=== PATIENT | female | born 1965 | race Caucasian/White ===

== ENCOUNTER 2018-02-18 14:42 | Outpatient (CLI) | payer MEDICAID, SELFPAY | END 2018-02-18 14:43 | PROVIDERS: PCP Specialist/Technologist Athletic Trainer; Visit Provider Urology | DX: N31.9 Neuromuscular dysfunction of bladder, unspecified (principal); N39.0 Urinary tract infection, site not specified; R31.0 Gross hematuria | CPT/HCPCS: 87077; 87086; 87186 ==

== ENCOUNTER 2018-03-17 17:41 | Outpatient (REF) | payer MEDICAID, SELFPAY | END 2018-03-17 18:01 | LOC: LBN 17:41 | PROVIDERS: PCP Specialist/Technologist Athletic Trainer; Visit Provider Urology | DX: R31.0 Gross hematuria (principal) | CPT/HCPCS: 87086 ==

== ENCOUNTER 2018-05-17 01:30 | Outpatient (RCR) | payer MEDICAID, SELFPAY ==
[2018-04-26] MEDS: Normal Saline Flush 10 ML SYR IVP (07:22)
[2018-04-26 07:40] LABS: Abs Immature Grans 0.01 k/cumm (0.0-0.09); Absolute Basophil Count 0.04 k/cumm (0.0-0.2); Absolute Eosinophil Count 0.21 k/cumm (0.0-0.7); Absolute Lymphocyte Count 2.62 k/cumm (1.2-3.4); Absolute Monocyte Count 0.94 k/cumm (0.11-0.7); Absolute Neutrophil Count 4.72 k/cumm (1.2-6.7); Basophils % 0.5; Eosinophils % 2.5; HCT 36.7 % (36.0-46.0); HGB 11.9 g/dL (12.0-15.5); Immature Grans % 0.1; Lymphocytes % 30.7; Mean Corp. HGB Concentration 32.4 g/dL (32.0-36.0); Mean Corpuscular Volume 92.4 fL (80-95); Mean Platelet Volume 10.8 fL (8.0-11.0); Neutrophils % 55.2; Platelet Count 273 x1000/uL (130-400); RBC 3.97 m/cumm (4.00-5.20); RBC Distribution Width 14.5 % (11.7-14.6); White Blood Cell Count 8.54 k/cumm (4.4-10.8)
[2018-04-26 07:59] LABS: ALT 18 U/L (12-78); AST 17 U/L (15-37); Albumin 3.4 g/dL (3.4-5.0); Alkaline Phosphatase 51 U/L (46-116); Anion Gap 10.1 mmol/L (3-11); BUN 15 mg/dL (7-18); Bilirubin, Total 0.2 mg/dL (0.2-1.0); CO2 26.9 mmol/L (21.0-32.0); CREATININE 0.93 mg/dL (0.55-1.02); Calcium 9.4 mg/dL (8.5-10.1); Chloride 102 mmol/L (98-107); Glucose 114 mg/dL (70-100); Magnesium 1.6 mg/dL (1.8-2.4); Potassium 4.1 mmol/L (3.5-5.1); Sodium 139 mmol/L (136-145); Total Protein 7.5 g/dL (6.4-8.2)
[2018-05-17] MEDS: Normal Saline Flush 10 ML SYR IVP (08:40)
[2018-05-17 09:11] LABS: Abs Immature Grans 0.02 k/cumm (0.0-0.09); Absolute Basophil Count 0.04 k/cumm (0.0-0.2); Absolute Lymphocyte Count 2.17 k/cumm (1.2-3.4); Absolute Neutrophil Count 3.36 k/cumm (1.2-6.7); Basophils % 0.6; Eosinophils % 1.5; HCT 33.9 % (36.0-46.0); HGB 10.9 g/dL (12.0-15.5); Immature Grans % 0.3; Mean Corp. HGB Concentration 32.2 g/dL (32.0-36.0); Mean Corpuscular Hemoglobin 29.8 pg (27.0-33.0); Mean Corpuscular Volume 92.6 fL (80-95); Monocytes % 16.2; Neutrophils % 49.4; Platelet Count 420 x1000/uL (130-400); RBC 3.66 m/cumm (4.00-5.20); RBC Distribution Width 15.9 % (11.7-14.6); White Blood Cell Count 6.79 k/cumm (4.4-10.8)
[2018-05-17 09:27] LABS: ALT 15 U/L (12-78); AST 15 U/L (15-37); Albumin 3.3 g/dL (3.4-5.0); Alkaline Phosphatase 45 U/L (46-116); Anion Gap 10.4 mmol/L (3-11); BUN 9 mg/dL (7-18); Bilirubin, Total 0.2 mg/dL (0.2-1.0); CO2 26.6 mmol/L (21.0-32.0); CREATININE 1.08 mg/dL (0.55-1.02); Calcium 8.8 mg/dL (8.5-10.1); Chloride 103 mmol/L (98-107); Estimated GFR 53.07 (mL/min/1.73m2); Glucose 99 mg/dL (70-100); Magnesium 1.8 mg/dL (1.8-2.4); Sodium 140 mmol/L (136-145)
== END 2018-05-20 23:59 | disposition home or self-care (01) ==
LOC: INF 01:30
PROVIDERS: PCP Specialist/Technologist Athletic Trainer; Visit Provider Internal Medicine
DX: C79.10 Secondary malignant neoplasm of unspecified urinary organs (principal); Z45.2 Encounter for adjustment and management of vascular access device
CPT/HCPCS: 36591; 80053; 83735; 85025

== ENCOUNTER 2018-05-20 18:50 | Outpatient (REF) | payer MEDICAID, SELFPAY | END 2018-05-20 19:10 | LOC: NCHCN 18:50 | PROVIDERS: PCP Specialist/Technologist Athletic Trainer; Visit Provider Family Medicine | DX: N39.0 Urinary tract infection, site not specified (principal) | CPT/HCPCS: 87077; 87086; 87186 ==

== ENCOUNTER 2018-06-09 13:01 | Outpatient (REF) | payer MEDICAID, SELFPAY | END 2018-06-09 13:21 | LOC: NCHCN 13:01 | PROVIDERS: PCP Specialist/Technologist Athletic Trainer; Visit Provider Family Medicine | DX: N39.0 Urinary tract infection, site not specified (principal) | CPT/HCPCS: 87086 ==

== ENCOUNTER 2018-06-15 00:36 | Outpatient (RCR) | payer MEDICAID, SELFPAY ==
[2018-05-24] MEDS: Normal Saline Flush 10 ML SYR IVP (08:26)
[2018-05-24 08:33] LABS: Abs Immature Grans 0.03 k/cumm (0.0-0.09); Absolute Basophil Count 0.07 k/cumm (0.0-0.2); Absolute Eosinophil Count 0.03 k/cumm (0.0-0.7); Absolute Lymphocyte Count 2.17 k/cumm (1.2-3.4); Absolute Monocyte Count 0.31 k/cumm (0.11-0.7); Absolute Neutrophil Count 2.65 k/cumm (1.2-6.7); Basophils % 1.3; Eosinophils % 0.6; HCT 32.9 % (36.0-46.0); HGB 10.9 g/dL (12.0-15.5); Immature Grans % 0.6; Lymphocytes % 41.3; Mean Corp. HGB Concentration 33.1 g/dL (32.0-36.0); Mean Corpuscular Hemoglobin 29.6 pg (27.0-33.0); Mean Corpuscular Volume 89.4 fL (80-95); Mean Platelet Volume 9.6 fL (8.0-11.0); Monocytes % 5.9; Neutrophils % 50.3; Platelet Count 449 x1000/uL (130-400); RBC 3.68 m/cumm (4.00-5.20); RBC Distribution Width 15.4 % (11.7-14.6); White Blood Cell Count 5.26 k/cumm (4.4-10.8)
[2018-05-24 08:47] LABS: ALT 17 U/L (12-78); AST 18 U/L (15-37); Albumin 3.7 g/dL (3.4-5.0); Alkaline Phosphatase 42 U/L (46-116); Anion Gap 9.3 mmol/L (3-11); BUN 15 mg/dL (7-18); Bilirubin, Total 0.2 mg/dL (0.2-1.0); CO2 24.7 mmol/L (21.0-32.0); Calcium 9.1 mg/dL (8.5-10.1); Chloride 99 mmol/L (98-107); Estimated GFR 46.99 (mL/min/1.73m2); Glucose 106 mg/dL (70-100); Magnesium 1.6 mg/dL (1.8-2.4); Potassium 4.3 mmol/L (3.5-5.1); Sodium 133 mmol/L (136-145); Total Protein 7.7 g/dL (6.4-8.2)
[2018-06-07] MEDS: Normal Saline Flush 10 ML SYR IVP (08:25)
[2018-06-07 09:09] LABS: Abs Immature Grans 0.05 k/cumm (0.0-0.09); Absolute Basophil Count 0.01 k/cumm (0.0-0.2); Absolute Eosinophil Count 0.15 k/cumm (0.0-0.7); Absolute Lymphocyte Count 1.83 k/cumm (1.2-3.4); Absolute Monocyte Count 1.01 k/cumm (0.11-0.7); Absolute Neutrophil Count 2.81 k/cumm (1.2-6.7); Basophils % 0.2; Eosinophils % 2.6; HCT 31.7 % (36.0-46.0); HGB 10.3 g/dL (12.0-15.5); Immature Grans % 0.9; Lymphocytes % 31.2; Mean Corp. HGB Concentration 32.5 g/dL (32.0-36.0); Mean Corpuscular Hemoglobin 29.9 pg (27.0-33.0); Mean Corpuscular Volume 92.2 fL (80-95); Mean Platelet Volume 10.1 fL (8.0-11.0); Monocytes % 17.2; Neutrophils % 47.9; Platelet Count 232 x1000/uL (130-400); RBC 3.44 m/cumm (4.00-5.20); RBC Distribution Width 18.5 % (11.7-14.6); White Blood Cell Count 5.86 k/cumm (4.4-10.8)
[2018-06-07 09:31] LABS: ALT 21 U/L (12-78); AST 19 U/L (15-37); Albumin 3.5 g/dL (3.4-5.0); Alkaline Phosphatase 33 U/L (46-116); Anion Gap 8.3 mmol/L (3-11); BUN 10 mg/dL (7-18); Bilirubin, Total 0.1 mg/dL (0.2-1.0); CO2 27.7 mmol/L (21.0-32.0); CREATININE 0.85 mg/dL (0.55-1.02); Calcium 8.9 mg/dL (8.5-10.1); Chloride 104 mmol/L (98-107); Glucose 103 mg/dL (70-100); Potassium 4.1 mmol/L (3.5-5.1); Sodium 140 mmol/L (136-145)
[2018-06-15] MEDS: Normal Saline Flush 10 ML SYR IVP (08:20)
[2018-06-15 08:49] LABS: Abs Immature Grans 0.22 k/cumm (0.0-0.09); HCT 30.2 % (36.0-46.0); HGB 9.9 g/dL (12.0-15.5); Mean Corp. HGB Concentration 32.8 g/dL (32.0-36.0); Mean Corpuscular Hemoglobin 29.9 pg (27.0-33.0); Mean Corpuscular Volume 91.2 fL (80-95); Mean Platelet Volume 9.9 fL (8.0-11.0); Platelet Count 335 x1000/uL (130-400); RBC 3.31 m/cumm (4.00-5.20); RBC Distribution Width 18.2 % (11.7-14.6)
[2018-06-15 09:01] LABS: Absolute Lymphocyte Count 3.36 k/cumm (1.2-3.4); Absolute Monocyte Count 0.48 k/cumm (0.11-0.7)
[2018-06-15 09:03] LABS: Anisocytosis 2+; Diff Comment Manual Differential
[2018-06-15 09:18] LABS: ALT 26 U/L (12-78); AST 21 U/L (15-37); Albumin 3.2 g/dL (3.4-5.0); Alkaline Phosphatase 31 U/L (46-116); Anion Gap 5.9 mmol/L (3-11); BUN 18 mg/dL (7-18); Bilirubin, Total 0.2 mg/dL (0.2-1.0); CO2 30.1 mmol/L (21.0-32.0); CREATININE 0.96 mg/dL (0.55-1.02); Calcium 8.6 mg/dL (8.5-10.1); Chloride 101 mmol/L (98-107); Glucose 76 mg/dL (70-100); Magnesium 1.8 mg/dL (1.8-2.4); Potassium 3.7 mmol/L (3.5-5.1); Sodium 137 mmol/L (136-145); Total Protein 6.3 g/dL (6.4-8.2)
== END 2018-06-20 23:59 | disposition home or self-care (01) ==
LOC: INF 00:36
PROVIDERS: PCP Specialist/Technologist Athletic Trainer; Visit Provider Internal Medicine
DX: C79.10 Secondary malignant neoplasm of unspecified urinary organs (principal); Z45.2 Encounter for adjustment and management of vascular access device
CPT/HCPCS: 36591; 80053; 83735; 85025

== ENCOUNTER 2018-06-22 14:30 | Emergency (ER) | payer MEDICAID, SELFPAY ==
[2018-06-22 14:34] VITALS: BP 129/69; PULSE 95; RESP 18; TEMP 36.7; O2SAT 98
--- NOTE | 2018-06-22 14:49 | ED.GENADUL_ITS ---
Discharge Plan Disposition Patient Disposition: HOME Condition: Improving Discharge Details Chief Complaint: RashLesion Clinical Impression: Cellulitis of left leg Primary Care Provider: Teetee Orozco V ED Provider: Michael Isaac Home Meds and New Rx's Prescriptions: New cephalexin 500 mg tablet 500 mg PO TID Qty: 21 RF: 0 Continued ondansetron HCl 8 mg tablet 8 mg PO TID PRN (Reason: nausea and vomiting) Qty: 10 RF: 0 oxycodone 5 mg capsule 10 mg PO Q6H PRN Qty: 40 RF: 0 female catheter BL TID Qty: 90 RF: 12 atorvastatin [Lipitor] 10 mg Tablet 10 mg PO HS RF: 0 dexamethasone [Decadron] 4 mg Tablet 4 mg PO Q8H RF: 0 lactulose 10 gram/15 mL Solution RF: 0 magnesium oxide,aspartate,citr 400 mg Capsule 400 mg PO RF: 0 prochlorperazine maleate [Compazine] 10 mg Tablet 10 mg PO ONCE RF: 0 Medical Decision Making 52-year-old female currently undergoing chemotherapy for bladder cancer presents with left lower extremity erythematous rash over 2 days time. It does not appear to be vesicular and is not consistent with a shingles eruption, particularly this is begun to cross the midline. Did not appreciate evidence of fluctuant area. She denies any recent medication changes. She is afebrile and well-appearing. Screening laboratories & blood cultures obtained Diagnostics reveal a normal white blood cell count, normal lactate. Patient given a dose of ceftriaxone in the emergency department and will place her on Keflex. Discussed with her that I do not feel this is vesicular, but rather more consistent with cellulitis. Discussed with her home care as well as follow-up precautions. She will follow-up in oncology clinic for recheck. Lab Data Lab results reviewed: Yes I reviewed the patient's lab results. Laboratory Results - last 24 hr Laboratory Results - last 24 hr 06/22/18 06/22/18 14:50 14:50 WBC 4.73 RBC 3.43 L Hgb 10.3 L Hct 31.5 L MCV 91.8 MCH 30.0 MCHC 32.7 RDW 19.7 H Plt Count 95 L D MPV 9.9 Immature Gran % 1.1 Neutrophils % 66.4 Lymphocytes % 19.2 Monocytes % 11.6 Eosinophils % 1.5 Basophils % 0.2 Absolute Neutrophils 3.14 Absolute Lymphocytes 0.91 L Absolute Monocytes 0.55 Absolute Eosinophils 0.07 Absolute Basophils 0.01 Differential Comment Rbc morph reviewed RBC Morphology See below Hypochromasia 2+ Poikilocytosis 2+ Anisocytosis 1+ Macrocytosis 1+ Sodium 136 Potassium 4.1 Chloride 101 Carbon Dioxide 27.2 Anion Gap 7.8 BUN 15 Creatinine 1.24 H Estimated GFR/1.73 m2 45.25 Glucose 116 H Lactate 1.1 Calcium 8.5 Total Bilirubin 0.4 AST 18 ALT 20 Alkaline Phosphatase 28 L Total Protein 6.6 Albumin 3.4 06/22/18 14:50 Sodium 136 Potassium 4.1 Chloride 101 Carbon Dioxide 27.2 Anion Gap 7.8 BUN 15 Creatinine 1.24 H Estimated GFR/1.73 m2 45.25 Glucose 116 H Lactate 1.1 Calcium 8.5 Total Bilirubin 0.4 AST 18 ALT 20 Alkaline Phosphatase 28 L Total Protein 6.6 Albumin 3.4 HPI General Mode of arrival: ambulatory . Date/Time Provider Initiated Documentation: 06/22/18 14:36 . Limitations to Documentation: no limitations . Information obtained by: patient . History of Present Illness 52 year old F presents to the emergency department with the chief complaint of Ascending left leg rash, described as moderate, Quality is described as burning, and is localized to the left and lower extremity. Patient reports no radiation. Patient started experiencing this day(s) and it has been constant. No relieving factors improve symptom(s), No exacerbating factors reported . Patient notes rash and other (No recent medications.); denies fever/chills. Patient did receive the following treatments prior to arrival, none Related Data Home Medications Medication Instructions Recorded Confirmed ondansetron HCl 8 mg tablet 8 mg PO TID PRN #10 tab 03/01/18 06/22/18 oxycodone 5 mg capsule 10 mg PO Q6H PRN #40 tab-cap 03/17/18 06/22/18 atorvastatin [Lipitor] 10 mg PO HS 06/22/18 06/22/18 cephalexin 500 mg PO TID #21 tab 06/22/18 dexamethasone [Decadron] 4 mg PO Q8H 06/22/18 06/22/18 lactulose 06/22/18 magnesium oxide,aspartate,citr 400 mg PO 06/22/18 prochlorperazine maleate 10 mg PO ONCE 06/22/18 06/22/18 [Compazine] Previous Rx's Medication Instructions Recorded ondansetron HCl 8 mg tablet 8 mg PO TID PRN #10 tab 03/01/18 oxycodone 5 mg capsule 10 mg PO Q6H PRN #40 tab-cap 03/17/18 cephalexin 500 mg PO TID #21 tab 06/22/18 Allergies Allergy/AdvReac Type Severity Reaction Status Date / Time nitrofurantoin Allergy really Unverified 06/22/18 14:40 sick General Stated Complaint: RashLesion CHAD: 3 Review of Systems Review of Systems 8 systems reviewed and otherwise - PFSH Social History Smoking/Tobacco Use Status: Current every day Exam Narrative Exam Narrative: GEN: awake, alert, oriented 3. Pleasant, well groomed, interactive. HEAD: Normocephalic, atraumatic ENT: Mucous membranes moist, oropharynx unremarkable, External ear exam unremarkable EYES: PERRL, EOMI NECK: Full ROM, no CORTES, no menigismus CHEST/RESP: Nontender, clear to auscultation bilateral, no wheeze/rhonchi/rales CARDIOVASCULAR: RRR, no murmur, rub susan. 2+ Rad pulse bilateral ABDOMEN: Soft, nontender, no mass. +Bowel sounds EXT: Full ROM, no edema, left lower extremity has a blanching, erythematous coalescing rash without vesicles that is present from the popliteal fossa to the buttock and crosses the midline. Neuro: Grossly normal neurologic exam, conversant, interactive. Psych: Speech fluent, thoughts congruent, affect normal Course Vital Signs Temperature 36.7 C 06/22/18 14:34 Pulse 95 H 06/22/18 14:34 Respiratory Rate 18 06/22/18 14:34 Blood Pressure 129/69 06/22/18 14:34 Pulse Oximetry 98 06/22/18 14:34 Temperature 36.7 C 06/22/18 14:34 Temperature Source Temporal Artery Scan 06/22/18 14:34 Pulse 95 H 06/22/18 14:34 Respiratory Rate 18 06/22/18 14:34 Respiratory Effort Non-Labored 06/22/18 14:34 Blood Pressure 129/69 06/22/18 14:34 Blood Pressure Position Supine 06/22/18 14:34 Pulse Oximetry 98 06/22/18 14:34 Oxygen Delivery Method Room Air 06/22/18 14:34 Oxygen Flow Rate 0 06/22/18 14:34 Pain Level 10 06/22/18 14:34
[2018-06-22 15:03] LABS: Abs Immature Grans 0.05 k/cumm (0.0-0.09); Absolute Basophil Count 0.01 k/cumm (0.0-0.2); Absolute Eosinophil Count 0.07 k/cumm (0.0-0.7); Absolute Lymphocyte Count 0.91 k/cumm (1.2-3.4); Absolute Monocyte Count 0.55 k/cumm (0.11-0.7); Absolute Neutrophil Count 3.14 k/cumm (1.2-6.7); Basophils % 0.2; Eosinophils % 1.5; HCT 31.5 % (36.0-46.0); HGB 10.3 g/dL (12.0-15.5); Immature Grans % 1.1; Lymphocytes % 19.2; Mean Corp. HGB Concentration 32.7 g/dL (32.0-36.0); Mean Corpuscular Volume 91.8 fL (80-95); Mean Platelet Volume 9.9 fL (8.0-11.0); Monocytes % 11.6; Neutrophils % 66.4; RBC 3.43 m/cumm (4.00-5.20); RBC Distribution Width 19.7 % (11.7-14.6); White Blood Cell Count 4.73 k/cumm (4.4-10.8)
[2018-06-22 15:04] LABS: Lactate 1.1 mmol/L (0.6-1.4)
[2018-06-22] MEDS: diphenhydrAMINE 50 MG/ML VIAL 25 MG IVP (15:17)
[2018-06-22 15:31] LABS: ALT 20 U/L (12-78); AST 18 U/L (15-37); Albumin 3.4 g/dL (3.4-5.0); Alkaline Phosphatase 28 U/L (46-116); Anion Gap 7.8 mmol/L (3-11); BUN 15 mg/dL (7-18); Bilirubin, Total 0.4 mg/dL (0.2-1.0); CO2 27.2 mmol/L (21.0-32.0); CREATININE 1.24 mg/dL (0.55-1.02); Calcium 8.5 mg/dL (8.5-10.1); Chloride 101 mmol/L (98-107); Estimated GFR 45.25 (mL/min/1.73m2); Glucose 116 mg/dL (70-100); Potassium 4.1 mmol/L (3.5-5.1); Sodium 136 mmol/L (136-145); Total Protein 6.6 g/dL (6.4-8.2)
[2018-06-22 15:49] LABS: Anisocytosis 1+; Diff Comment RBC Morph Reviewed
[2018-06-22 15:50] LABS: Hypochromasia 2+; Macrocytosis 1+; Poikilocytes 2+
[2018-06-22 15:51] LABS: Platelet Count 95 x1000/uL (130-400)
--- NOTE | 2018-06-22 15:53 | NUR.NOTE ---
Nursing Note: Benadyrl improved ithcing per patient. IV abx infused. resting in bed in no acute distress. will continue to monitor.
[2018-06-22 16:17] VITALS: RESP 18; TEMP 36.7
== END 2018-06-22 16:20 | disposition home or self-care (01) ==
PROVIDERS: Emergency Provider Emergency Medicine; PCP Family Medicine
DX: L03.116 Cellulitis of left lower limb (principal)
CPT/HCPCS: 36415; 80053; 87040; 96365; 96375; 99284; 83605; 85025; J0696; J1200

== ENCOUNTER 2018-07-12 02:05 | Outpatient (RCR) | payer MEDICAID, SELFPAY ==
[2018-06-28] MEDS: Normal Saline Flush 10 ML SYR IVP (09:41)
[2018-06-28 09:50] LABS: Abs Immature Grans 0.11 k/cumm (0.0-0.09); Absolute Basophil Count 0.04 k/cumm (0.0-0.2); Absolute Eosinophil Count 0.18 k/cumm (0.0-0.7); Absolute Lymphocyte Count 1.77 k/cumm (1.2-3.4); Absolute Monocyte Count 0.81 k/cumm (0.11-0.7); Absolute Neutrophil Count 3.09 k/cumm (1.2-6.7); Basophils % 0.7; HCT 30.7 % (36.0-46.0); HGB 9.8 g/dL (12.0-15.5); Immature Grans % 1.8; Lymphocytes % 29.5; Mean Corp. HGB Concentration 31.9 g/dL (32.0-36.0); Mean Corpuscular Hemoglobin 30.1 pg (27.0-33.0); Mean Corpuscular Volume 94.2 fL (80-95); Mean Platelet Volume 9.7 fL (8.0-11.0); Monocytes % 13.5; Neutrophils % 51.5; Platelet Count 333 x1000/uL (130-400); RBC 3.26 m/cumm (4.00-5.20); RBC Distribution Width 21.3 % (11.7-14.6)
[2018-06-28 10:01] LABS: ALT 17 U/L (12-78); AST 16 U/L (15-37); Albumin 3.3 g/dL (3.4-5.0); Alkaline Phosphatase 38 U/L (46-116); Anion Gap 9.3 mmol/L (3-11); BUN 7 mg/dL (7-18); Bilirubin, Total 0.2 mg/dL (0.2-1.0); CO2 26.7 mmol/L (21.0-32.0); CREATININE 1.07 mg/dL (0.55-1.02); Calcium 9.2 mg/dL (8.5-10.1); Chloride 107 mmol/L (98-107); Estimated GFR 53.64 (mL/min/1.73m2); Glucose 104 mg/dL (70-100); Magnesium 1.8 mg/dL (1.8-2.4); Potassium 4.3 mmol/L (3.5-5.1); Sodium 143 mmol/L (136-145); Total Protein 6.8 g/dL (6.4-8.2)
[2018-07-05] MEDS: Normal Saline Flush 10 ML SYR IVP (08:10)
[2018-07-05 08:38] LABS: Abs Immature Grans 0.01 k/cumm (0.0-0.09); Absolute Basophil Count 0.05 k/cumm (0.0-0.2); Absolute Eosinophil Count 0.07 k/cumm (0.0-0.7); Absolute Lymphocyte Count 1.14 k/cumm (1.2-3.4); Absolute Monocyte Count 0.12 k/cumm (0.11-0.7); Absolute Neutrophil Count 0.89 k/cumm (1.2-6.7); Basophils % 2.2; Eosinophils % 3.1; HCT 28.3 % (36.0-46.0); HGB 9.1 g/dL (12.0-15.5); Immature Grans % 0.4; Mean Corp. HGB Concentration 32.2 g/dL (32.0-36.0); Mean Corpuscular Hemoglobin 29.9 pg (27.0-33.0); Mean Corpuscular Volume 93.1 fL (80-95); Mean Platelet Volume 9.7 fL (8.0-11.0); Monocytes % 5.3; Platelet Count 326 x1000/uL (130-400); RBC 3.04 m/cumm (4.00-5.20); RBC Distribution Width 20.3 % (11.7-14.6); White Blood Cell Count 2.28 k/cumm (4.4-10.8)
[2018-07-05 08:47] LABS: ALT 18 U/L (12-78); AST 26 U/L (15-37); Albumin 3.3 g/dL (3.4-5.0); Alkaline Phosphatase 35 U/L (46-116); Anion Gap 9.4 mmol/L (3-11); BUN 15 mg/dL (7-18); Bilirubin, Total 0.2 mg/dL (0.2-1.0); CO2 28.6 mmol/L (21.0-32.0); CREATININE 1.49 mg/dL (0.55-1.02); Calcium 8.9 mg/dL (8.5-10.1); Chloride 104 mmol/L (98-107); Estimated GFR 36.61 (mL/min/1.73m2); Glucose 102 mg/dL (70-100); Magnesium 1.5 mg/dL (1.8-2.4); Potassium 4.3 mmol/L (3.5-5.1); Sodium 142 mmol/L (136-145); Total Protein 6.7 g/dL (6.4-8.2)
[2018-07-05 09:09] LABS: Anisocytosis 2+; Diff Comment Diff Reviewed
[2018-07-05 09:10] LABS: Hypochromasia 1+; Poikilocytes 1+
[2018-07-12 08:52] LABS: Absolute Basophil Count 0.02 k/cumm (0.0-0.2); Absolute Eosinophil Count 0.11 k/cumm (0.0-0.7); Absolute Lymphocyte Count 1.29 k/cumm (1.2-3.4); Absolute Monocyte Count 0.58 k/cumm (0.11-0.7); Absolute Neutrophil Count 2.48 k/cumm (1.2-6.7); Basophils % 0.4; Eosinophils % 2.5; HCT 28.7 % (36.0-46.0); HGB 9.2 g/dL (12.0-15.5); Lymphocytes % 28.8; Mean Corp. HGB Concentration 32.1 g/dL (32.0-36.0); Mean Corpuscular Volume 93.5 fL (80-95); Mean Platelet Volume 10.1 fL (8.0-11.0); Monocytes % 12.9; Neutrophils % 55.4; RBC 3.07 m/cumm (4.00-5.20); RBC Distribution Width 21.4 % (11.7-14.6); White Blood Cell Count 4.48 k/cumm (4.4-10.8)
[2018-07-12 09:09] LABS: Diff Comment RBC Morph Reviewed; Platelet Count 112 x1000/uL (130-400)
[2018-07-12 09:10] LABS: ALT 17 U/L (12-78); AST 20 U/L (15-37); Albumin 3.4 g/dL (3.4-5.0); Alkaline Phosphatase 37 U/L (46-116); Anion Gap 8.3 mmol/L (3-11); Anisocytosis 2+; BUN 18 mg/dL (7-18); Bilirubin, Total 0.3 mg/dL (0.2-1.0); CO2 27.7 mmol/L (21.0-32.0); CREATININE 1.31 mg/dL (0.55-1.02); Calcium 9.4 mg/dL (8.5-10.1); Chloride 107 mmol/L (98-107); Estimated GFR 42.47 (mL/min/1.73m2); Glucose 95 mg/dL (70-100); Magnesium 1.6 mg/dL (1.8-2.4); Poikilocytes 1+; Polychromasia Present; Potassium 4.1 mmol/L (3.5-5.1); Sodium 143 mmol/L (136-145); Total Protein 6.7 g/dL (6.4-8.2)
[2018-07-12] MEDS: Heparin 500 UNITS/5 ML SYRINGE IV (11:15)
[2018-07-12] MEDS: Normal Saline Flush 10 ML SYR IVP (11:15)
== END 2018-07-21 23:59 | disposition home or self-care (01) ==
LOC: INF 02:05
PROVIDERS: PCP Family Medicine; Visit Provider Internal Medicine
DX: C79.10 Secondary malignant neoplasm of unspecified urinary organs (principal); Z45.2 Encounter for adjustment and management of vascular access device
CPT/HCPCS: 36591; 80053; 96523; 83735; 85025

== ENCOUNTER 2018-07-12 11:49 | Outpatient (CLI) | payer MEDICAID, SELFPAY ==
--- NOTE | 2018-07-12 11:00 | DI.CT_ITS ---
SYMPTOMS/DIAGNOSIS: NEW DYSPNEA ON EXERTION, R06.09, SHORTNESS OF BREATH, R06.02, METASTATIC UROTHELIAL CA, C79.10, CURRENTLY ON CHEMOTHERAPY CTA OF THE CHEST: CT angiography was performed with multi slice acquisition and multi planar and 3D reconstruction. CT scan of the chest was performed according to the pulmonary embolus protocol. There is no evidence of a pulmonary embolus. The thoracic aorta is of normal caliber. No aneurysmal dilatation or dissection is seen. The heart size is within normal limits. No significant pericardial effusion is seen. No evidence of right ventricular dysfunction is present. There is an indwelling central venous catheter in good position. No significant thoracic adenopathy is appreciated. No pleural effusion or pneumothorax is identified. Severe central lobular emphysematous changes are present in the lungs. Atelectatic changes are seen in the lung bases. No focal consolidating infiltrates are seen. The tracheobronchial tree is unremarkable. Degenerative changes are present in the spine. Upper abdominal images show calcified granuloma in the spleen but no acute abnormality. IMPRESSION: No evidence of a pulmonary embolus, thoracic aortic dissection or aneurysm.
[2018-07-12] MEDS: Omnipaque 350 MG/ML 50 ML BTL IJ (11:48)
== END 2018-07-12 12:09 ==
PROVIDERS: PCP Family Medicine; Visit Provider Internal Medicine
DX: R06.09 Other forms of dyspnea (principal); R06.02 Shortness of breath; C79.10 Secondary malignant neoplasm of unspecified urinary organs; Z92.21 Personal history of antineoplastic chemotherapy
CPT/HCPCS: 71275; Q9967

== ENCOUNTER 2018-07-14 12:45 | Outpatient (REF) | payer MEDICAID, SELFPAY | END 2018-07-14 13:05 | LOC: NCHCN 12:45 | PROVIDERS: PCP Family Medicine; Visit Provider Family Medicine | DX: N30.90 Cystitis, unspecified without hematuria (principal) | CPT/HCPCS: 87086 ==

== ENCOUNTER 2018-10-17 16:34 | Outpatient (REF) | payer MEDICAID, SELFPAY ==
[2018-10-17 17:14] LABS: Bilirubin Negative (Negative); Blood Large (Negative); Clarity Clear; Glucose Negative (Negative); Ketones Negative (Negative); Leukocyte Esterase Large (Negative); Nitrite Positive (Negative); Urobilinogen 0.2 EU/dL (Up TO 0.2); pH 6.5 (5-8)
[2018-10-17 17:18] LABS: Bacteria Few HPF (Negative); C & S Indicated? Yes; Casts Negative LPF (Negative); Crystals Negative HPF (Negative); Epithelial Cells Negative HPF (Negative); Mucus Negative (Negative); Other Cells Negative (Negative); RBC >50 (0-2); WBC >50 HPF (0-5)
== END 2018-10-17 16:54 ==
LOC: LBN 16:34
PROVIDERS: PCP Family Medicine; Visit Provider Urology
DX: N39.0 Urinary tract infection, site not specified (principal)
CPT/HCPCS: 87077; 81003; 81015; 87086; 87186

== ENCOUNTER 2018-10-18 15:26 | Outpatient (REF) | payer MEDICAID, SELFPAY | END 2018-10-18 15:46 | LOC: NCHCN 15:26 | PROVIDERS: PCP Family Medicine; Visit Provider Family Medicine | DX: N89.8 Other specified noninflammatory disorders of vagina (principal) | CPT/HCPCS: 87070; 87205 ==

== ENCOUNTER 2018-12-05 15:47 | Outpatient (CLI) | payer MEDICAID, SELFPAY | END 2018-12-05 16:07 | PROVIDERS: PCP Family Medicine; Visit Provider Family Medicine | DX: C67.9 Malignant neoplasm of bladder, unspecified (principal) | CPT/HCPCS: 87077; 87086; 87186 ==

== ENCOUNTER 2019-07-26 14:00 | Outpatient (CLI) | payer MEDICAID, SELFPAY | END 2019-07-26 14:20 | PROVIDERS: PCP Family Medicine; Visit Provider Urology | DX: R39.89 Other symptoms and signs involving the genitourinary system (principal); R82.998 Other abnormal findings in urine | CPT/HCPCS: 87086 ==

== ENCOUNTER 2019-08-08 12:43 | Outpatient (REF) | payer MEDICAID, SELFPAY | END 2019-08-08 13:03 | LOC: LBN 12:43 | PROVIDERS: PCP Family Medicine; Visit Provider Urology | DX: R39.89 Other symptoms and signs involving the genitourinary system (principal) | CPT/HCPCS: 87086 ==

== ENCOUNTER 2019-08-15 12:39 | Outpatient (RCR) | payer MEDICAID, SELFPAY ==
[2019-08-15 13:08] LABS: Estimated GFR 33.59 (mL/min/1.73m2)
[2019-08-15] MEDS: Heparin 500 UNITS/5 ML SYRINGE (14:37)
[2019-08-15] MEDS: Normal Saline Flush 10 ML SYR 30 ML IVP (14:40)
== END 2019-08-19 23:59 | disposition home or self-care (01) ==
LOC: INF 12:39
PROVIDERS: PCP Family Medicine; Visit Provider Radiology Radiation Oncology
DX: C67.2 Malignant neoplasm of lateral wall of bladder (principal); Z45.2 Encounter for adjustment and management of vascular access device
CPT/HCPCS: 36591; 82565

== ENCOUNTER 2019-09-18 13:00 | Outpatient (RCR) | payer MEDICAID, SELFPAY ==
[2019-08-22] MEDS: Normal Saline Flush 10 ML SYR IVP (13:51)
[2019-08-22 14:20] LABS: CREATININE 1.57 mg/dL (0.55-1.02); Estimated GFR 34.33 (mL/min/1.73m2)
[2019-08-22 14:53] LABS: Abs Immature Grans 0.02 k/cumm (0.0-0.09); Absolute Basophil Count 0.04 k/cumm (0.0-0.2); Absolute Eosinophil Count 0.05 k/cumm (0.0-0.7); Absolute Lymphocyte Count 2.08 k/cumm (1.2-3.4); Absolute Monocyte Count 0.56 k/cumm (0.11-0.7); Absolute Neutrophil Count 5.89 k/cumm (1.2-6.7); Basophils % 0.5; Eosinophils % 0.6; HCT 37.8 % (36.0-46.0); HGB 12.3 g/dL (12.0-15.5); Immature Grans % 0.2 %; Lymphocytes % 24.1; Mean Corp. HGB Concentration 32.5 g/dL (32.0-36.0); Mean Corpuscular Hemoglobin 30.8 pg (27.0-33.0); Mean Corpuscular Volume 94.5 fL (80-95); Mean Platelet Volume 11.9 fL (8.0-11.0); Monocytes % 6.5; Neutrophils % 68.1; Platelet Count 245 x1000/uL (130-400); RBC Distribution Width 13.1 % (11.7-14.6); White Blood Cell Count 8.64 k/cumm (4.4-10.8)
[2019-08-22 15:31] LABS: ALT 14 U/L (14-59); AST 16 U/L (15-37); Albumin 3.7 g/dL (3.4-5.0); Alkaline Phosphatase 49 U/L (46-116); Anion Gap 13.7 mmol/L (3-11); BUN 15 mg/dL (7-18); Bilirubin, Total 0.2 mg/dL (0.2-1.0); CO2 21.3 mmol/L (21.0-32.0); CREATININE 1.57 mg/dL (0.55-1.02); Chloride 106 mmol/L (98-107); Estimated GFR 34.33 (mL/min/1.73m2); Glucose 129 mg/dL (74-106); Magnesium 1.9 mg/dL (1.8-2.4); Potassium 4.1 mmol/L (3.5-5.1); Sodium 141 mmol/L (136-145); Total Protein 6.9 g/dL (6.4-8.2)
[2019-09-05] MEDS: Heparin 500 UNITS/5 ML SYRINGE IVP (12:15)
[2019-09-05] MEDS: Normal Saline Flush 10 ML SYR 30 ML IVP (12:15)
[2019-09-05 12:38] LABS: Abs Immature Grans 0.02 k/cumm (0.0-0.09); Absolute Basophil Count 0.01 k/cumm (0.0-0.2); Absolute Eosinophil Count 0.06 k/cumm (0.0-0.7); Absolute Lymphocyte Count 0.64 k/cumm (1.2-3.4); Absolute Monocyte Count 0.74 k/cumm (0.11-0.7); Absolute Neutrophil Count 3.22 k/cumm (1.2-6.7); Basophils % 0.2; Eosinophils % 1.3; Immature Grans % 0.4 %; Lymphocytes % 13.6; Mean Corp. HGB Concentration 33.3 g/dL (32.0-36.0); Mean Corpuscular Hemoglobin 31.3 pg (27.0-33.0); Mean Platelet Volume 10.1 fL (8.0-11.0); Monocytes % 15.8; Neutrophils % 68.7; Platelet Count 139 x1000/uL (130-400); RBC 3.51 m/cumm (4.00-5.20); RBC Distribution Width 12.5 % (11.7-14.6); White Blood Cell Count 4.69 k/cumm (4.4-10.8)
[2019-09-05 12:58] LABS: ALT 18 U/L (14-59); AST 15 U/L (15-37); Albumin 3.4 g/dL (3.4-5.0); Alkaline Phosphatase 51 U/L (46-116); Anion Gap 8.4 mmol/L (3-11); BUN 18 mg/dL (7-18); Bilirubin, Total 0.3 mg/dL (0.2-1.0); CO2 26.6 mmol/L (21.0-32.0); CREATININE 1.64 mg/dL (0.55-1.02); Calcium 9.2 mg/dL (8.5-10.1); Chloride 102 mmol/L (98-107); Estimated GFR 32.65 (mL/min/1.73m2); Glucose 119 mg/dL (74-106); Sodium 137 mmol/L (136-145); Total Protein 7.4 g/dL (6.4-8.2)
[2019-09-18 12:25] LABS: Abs Immature Grans 0.04 k/cumm (0.0-0.09); Absolute Basophil Count 0.01 k/cumm (0.0-0.2); Absolute Eosinophil Count 0.17 k/cumm (0.0-0.7); Absolute Lymphocyte Count 0.63 k/cumm (1.2-3.4); Absolute Monocyte Count 0.93 k/cumm (0.11-0.7); Absolute Neutrophil Count 6.99 k/cumm (1.2-6.7); Basophils % 0.1; Eosinophils % 1.9; HCT 33.3 % (36.0-46.0); HGB 11.3 g/dL (12.0-15.5); Immature Grans % 0.5 %; Lymphocytes % 7.2; Mean Corp. HGB Concentration 33.9 g/dL (32.0-36.0); Mean Corpuscular Hemoglobin 32.1 pg (27.0-33.0); Mean Corpuscular Volume 94.6 fL (80-95); Mean Platelet Volume 9.3 fL (8.0-11.0); Monocytes % 10.6; Neutrophils % 79.7; Platelet Count 335 x1000/uL (130-400); RBC 3.52 m/cumm (4.00-5.20); White Blood Cell Count 8.77 k/cumm (4.4-10.8)
[2019-09-18 12:40] LABS: ALT 14 U/L (14-59); AST 12 U/L (15-37); Albumin 3.2 g/dL (3.4-5.0); Alkaline Phosphatase 45 U/L (46-116); Anion Gap 8.5 mmol/L (3-11); BUN 24 mg/dL (7-18); Bilirubin, Total 0.3 mg/dL (0.2-1.0); CO2 24.5 mmol/L (21.0-32.0); CREATININE 2.01 mg/dL (0.55-1.02); Chloride 103 mmol/L (98-107); Estimated GFR 25.82 (mL/min/1.73m2); Glucose 94 mg/dL (74-106); Magnesium 1.8 mg/dL (1.8-2.4); Potassium 4.2 mmol/L (3.5-5.1); Sodium 136 mmol/L (136-145); Total Protein 7.1 g/dL (6.4-8.2)
[2019-09-18] MEDS: Normal Saline Flush 10 ML SYR IVP (12:48)
[2019-09-18] MEDS: Heparin 500 UNITS/5 ML SYRINGE IV (12:48)
== END 2019-09-19 23:59 | disposition other institution (70) ==
LOC: INF 13:00
PROVIDERS: Radiology Radiation Oncology; PCP Family Medicine; Visit Provider Internal Medicine
DX: Z45.2 Encounter for adjustment and management of vascular access device; C67.2 Malignant neoplasm of lateral wall of bladder
CPT/HCPCS: 36591; 80053; 82565; 83735; 85025

== ENCOUNTER 2019-09-26 13:56 | Outpatient (RCR) | payer MEDICAID, SELFPAY ==
[2019-09-26] MEDS: Heparin 500 UNITS/5 ML SYRINGE (14:08)
[2019-09-26] MEDS: Normal Saline Flush 10 ML SYR IVP (14:09)
[2019-09-26 14:25] LABS: Abs Immature Grans 0.05 k/cumm (0.0-0.09); HGB 13.5 g/dL (12.0-15.5); Mean Corp. HGB Concentration 34.6 g/dL (32.0-36.0); Mean Corpuscular Hemoglobin 31.8 pg (27.0-33.0); Mean Corpuscular Volume 91.8 fL (80-95); Platelet Count 271 x1000/uL (130-400); RBC 4.25 m/cumm (4.00-5.20); RBC Distribution Width 14.6 % (11.7-14.6)
[2019-09-26 14:39] LABS: ALT 12 U/L (14-59); AST 11 U/L (15-37); Albumin 3.2 g/dL (3.4-5.0); Alkaline Phosphatase 53 U/L (46-116); Anion Gap 11.6 mmol/L (3-11); BUN 25 mg/dL (7-18); Bilirubin, Total 0.3 mg/dL (0.2-1.0); CO2 22.4 mmol/L (21.0-32.0); CREATININE 1.91 mg/dL (0.55-1.02); Calcium 9.8 mg/dL (8.5-10.1); Chloride 99 mmol/L (98-107); Estimated GFR 27.38 (mL/min/1.73m2); Glucose 107 mg/dL (74-106); Magnesium 1.8 mg/dL (1.8-2.4); Potassium 4.3 mmol/L (3.5-5.1); Sodium 133 mmol/L (136-145); Total Protein 7.9 g/dL (6.4-8.2)
[2019-09-26 14:56] LABS: Absolute Eosinophil Count 0.09 k/cumm (0.0-0.7); Absolute Lymphocyte Count 0.66 k/cumm (1.2-3.4); Absolute Monocyte Count 2.07 k/cumm (0.11-0.7); Absolute Neutrophil Count 6.58 k/cumm (1.2-6.7); Diff Comment Manual Differential; RBC Morphology Normal
== END 2019-10-19 23:59 | disposition home or self-care (01) ==
LOC: INF 13:56
PROVIDERS: PCP Family Medicine; Visit Provider Internal Medicine
DX: C79.10 Secondary malignant neoplasm of unspecified urinary organs (principal); Z45.2 Encounter for adjustment and management of vascular access device
CPT/HCPCS: 36591; 80053; 83735; 85025

== ENCOUNTER 2019-10-19 17:32 | Outpatient (REF) | payer MEDICAID, SELFPAY | END 2019-10-19 17:52 | LOC: NCHCN 17:32 | PROVIDERS: PCP Family Medicine; Visit Provider Family Medicine | DX: N39.0 Urinary tract infection, site not specified (principal); Z93.6 Other artificial openings of urinary tract status | CPT/HCPCS: 87077; 87086; 87186 ==

== ENCOUNTER 2019-11-29 01:21 | Outpatient (CLI) | payer MEDICAID, SELFPAY ==
[2019-11-29 13:54] LABS: HCT 31.7 % (36.0-46.0); HGB 10.5 g/dL (12.0-15.5); Mean Corp. HGB Concentration 33.1 g/dL (32.0-36.0); Mean Corpuscular Hemoglobin 31.3 pg (27.0-33.0); Mean Corpuscular Volume 94.3 fL (80-95); Mean Platelet Volume 10.4 fL (8.0-11.0); Platelet Count 318 x1000/uL (130-400); RBC 3.36 m/cumm (4.00-5.20); White Blood Cell Count 6.77 k/cumm (4.4-10.8)
[2019-11-29 14:21] LABS: ALT 13 U/L (14-59); AST 15 U/L (15-37); Albumin 2.7 g/dL (3.4-5.0); Alkaline Phosphatase 50 U/L (46-116); Anion Gap 8.1 mmol/L (3-11); BUN 15 mg/dL (7-18); Bilirubin, Total 0.2 mg/dL (0.2-1.0); CO2 25.9 mmol/L (21.0-32.0); CREATININE 1.06 mg/dL (0.55-1.02); Calcium 8.3 mg/dL (8.5-10.1); Chloride 103 mmol/L (98-107); Estimated GFR 54.02 (mL/min/1.73m2); Glucose 74 mg/dL (74-106); Magnesium 1.7 mg/dL (1.8-2.4); Potassium 4.7 mmol/L (3.5-5.1); Sodium 137 mmol/L (136-145); Total Protein 5.9 g/dL (6.4-8.2)
[2019-11-29 14:34] LABS: C-Reactive Protein 0.15 mg/dL (0.0-0.3)
[2019-11-29 15:01] LABS: ESR 50 mm/hr (0-30)
[2019-11-30 17:23] LABS: TSH (W/Ref FT4) 1.33 uIU/mL (0.36-3.74)
== END 2019-11-29 01:41 ==
PROVIDERS: PCP Family Medicine; Visit Provider Family Medicine
DX: C67.9 Malignant neoplasm of bladder, unspecified (principal)
CPT/HCPCS: 80053; 85027; 85652; 83735; 84443; 86140

== ENCOUNTER 2019-12-19 08:24 | Outpatient (RCR) | payer MEDICAID, SELFPAY ==
[2019-12-19] MEDS: Normal Saline Flush 10 ML SYR IVP (08:25)
[2019-12-19] MEDS: Heparin 500 UNITS/5 ML SYRINGE (08:25)
[2019-12-19 08:42] LABS: Abs Immature Grans 0.02 k/cumm (0.0-0.09); Absolute Basophil Count 0.03 k/cumm (0.0-0.2); Absolute Lymphocyte Count 1.23 k/cumm (1.2-3.4); Absolute Monocyte Count 0.83 k/cumm (0.11-0.7); Absolute Neutrophil Count 4.72 k/cumm (1.2-6.7); Basophils % 0.4; Eosinophils % 1.4; HCT 32.1 % (36.0-46.0); HGB 10.5 g/dL (12.0-15.5); Immature Grans % 0.3 %; Lymphocytes % 17.7; Mean Corp. HGB Concentration 32.7 g/dL (32.0-36.0); Mean Corpuscular Hemoglobin 31.7 pg (27.0-33.0); Mean Platelet Volume 9.5 fL (8.0-11.0); Neutrophils % 68.2; Platelet Count 335 x1000/uL (130-400); RBC 3.31 m/cumm (4.00-5.20); RBC Distribution Width 15.6 % (11.7-14.6); White Blood Cell Count 6.93 k/cumm (4.4-10.8)
[2019-12-19 09:00] LABS: ALT 8 U/L (14-59); AST 11 U/L (15-37); Albumin 2.3 g/dL (3.4-5.0); Alkaline Phosphatase 47 U/L (46-116); Anion Gap 6.1 mmol/L (3-11); BUN 13 mg/dL (7-18); Bilirubin, Total 0.2 mg/dL (0.2-1.0); CO2 24.9 mmol/L (21.0-32.0); CREATININE 0.94 mg/dL (0.55-1.02); Calcium 8.2 mg/dL (8.5-10.1); Chloride 107 mmol/L (98-107); Glucose 88 mg/dL (74-106); Magnesium 1.6 mg/dL (1.8-2.4); Potassium 3.6 mmol/L (3.5-5.1); Sodium 138 mmol/L (136-145); Total Protein 5.9 g/dL (6.4-8.2)
== END 2019-12-19 23:59 | disposition home or self-care (01) ==
LOC: INF 08:24
PROVIDERS: PCP Family Medicine; Visit Provider Internal Medicine
DX: C79.10 Secondary malignant neoplasm of unspecified urinary organs (principal); Z45.2 Encounter for adjustment and management of vascular access device
CPT/HCPCS: 36591; 80053; 83735; 85025

== ENCOUNTER 2020-01-09 13:51 | Emergency (ER) | payer MEDICAID, SELFPAY ==
[2020-01-09] VITALS (16 sets, daily range): BP systolic 96–122; BP diastolic 67–80; PULSE 88–117; RESP 16; TEMP 36.8; O2SAT 94–97
--- NOTE | 2020-01-09 14:15 | DI.CT_ITS ---
EXAM: CT ABDOMEN PELVIS W CLINICAL HISTORY: LLQ pain, obstipation, hx bladder ca TECHNIQUE: Imaging Protocol: Axial computed tomography images with coronal and sagittal reformatted images were created and reviewed CONTRAST MATERIAL: Intravenous: Omnipaque 350 Contrast volume:70 mL Oral: No FINDINGS: ABDOMEN: Lung Bases: Centrilobular emphysematous changes are present. No acute infiltrates are seen in the reagan g bases. Liver: Normal density. No measurable mass. Portal, Superior Mesenteric, and Splenic Veins: Unremarkable. Gallbladder and Biliary Tract: No cholelithiasis. Intra and extrahepatic biliary ductal dilatation is present. The common duct measures up to 9 mm in diameter. Pancreas: Normal density, no abnormal calcifications or inflammatory process. Spleen: Calcifications are consistent with prior granulomatous disease. Adrenals: No masses seen. Kidneys: Normal size, contour and axis. No nephrolithiasis. No masses seen. There is mild to moderate dilatation of the right renal collecting system without obvious cause. Abdominal Aorta: Abdominal portion non-dilated. Atherosclerosis. Bowel: Diffusely dilated loops of small bowel are seen measuring up to 3.5 cm in diameter. Distally s mall bowel loops are of normal caliber. There does appear to be mucosal edema and hyperenhancement in loops of the distal small bowel and cecum/ascending colon. There is a large amount of stool seen in the colon. No evidence of acute appendicitis. Peritoneal Cavity: Small amount of abdominal pelvic ascites. Lymph Nodes: Within normal limits. Bones: Degenerative changes seen in the spine. Soft Tissues: Unremarkable. PELVIS: Bladder: The patient appears to be status post cystectomy with right lower quadrant urinary diversion . Reproductive Organs: Unremarkable as visualized. Lymph Nodes: Within normal limits. Bones: Degenerative changes. IMPRESSION: 1. Intra and extrahepatic biliary ductal dilatation of unclear etiology. 2. Findings suspicious for a partial small bowel obstruction with a transition in the right lower kerline drant. 3. Hyperenhancement and submucosal edema in loops of bowel in the right lower quadrant including the distal small bowel and the cecum and ascending colon suspicious for an inflammatory process. No evide nce of abscess or bowel obstruction. 4. Status post cystectomy with right lower quadrant urinary diversion and [id number] right hydr onephrosis. RADIATION DOSE DELIVERED: Total DLP DATA REPOSITORY: All CT scans at this facility are submitted to the National Radiology Data Registry (NRDR) Dose Index Registry (DIR) with the [employer] ([employer]). RADIATION OPTIMIZATION: All CT scans at this facility use at least one of these dose optimization te chniques: automated exposure control; mA and/or kV adjustment per patient size (includes targeted exa ms where dose is matched to clinical indication); or iterative reconstruction.
--- NOTE | 2020-01-09 14:18 | W.ED.GENAD ---
Discharge Plan Disposition Patient Disposition: AGAINST MEDICAL ADVICE Condition: Stable Discharge Details Chief Complaint: Abd Prob Clinical Impression: Ileus, Bowel obstruction Primary Care Provider: Teetee Orozco V ED Provider: Michael Isaac Home Meds and New Rx's Prescriptions: Continued ondansetron HCl 8 mg tablet 8 mg PO TID PRN (Reason: nausea and vomiting) Qty: 10 RF: 0 female catheter BL TID Qty: 90 RF: 12 atorvastatin [Lipitor] 10 mg Tablet 10 mg PO HS RF: 0 prochlorperazine maleate [Compazine] 10 mg Tablet 10 mg PO ONCE RF: 0 venlafaxine 75 mg capsule,extended release 24hr 75 mg PO DAILY RF: 0 docusate sodium [DOK] 100 mg capsule 100 mg PO BID PRNRF: 0 pramipexole 0.25 mg tablet 0.25 mg PO .QHS RF: 0 omeprazole 20 mg capsule,delayed release(DR/EC) 20 mg PO DAILY RF: 0 hydroxyzine HCl 25 mg tablet 25 mg PO TID RF: 0 gabapentin 100 mg capsule 100 mg PO .QHS RF: 0 albuterol sulfate [ProAir HFA] 90 mcg/actuation HFA aerosol inhaler 2 puff INHALATION .4-6 HRS PRNRF: 0 fentanyl 12 mcg/hr patch 72 hour 25 transdermal .Q72 HRS RF: 0 budesonide-formoterol [Symbicort] 80-4.5 mcg/actuation HFA aerosol inhaler 1 puff INHALATION BID RF: 0 oxycodone 10 mg tablet 10 mg PO .1-2 QID PRNRF: 0 cholecalciferol (vitamin D3) [Vitamin D3] 50 mcg (2,000 unit) Capsule 2,000 unit PO DAILY RF: 0 dronabinol 5 mg capsule 5 mg PO DAILY RF: 0 Discharge Instructions Additional Instructions: You have requested discharge from the emergency department. You will be leaving AGAINST MEDICAL ADVICE. You were offered admission to the hospital on the surgery service for bowel obstruction/ileus. Return at any time for reconsideration of admission. You have stated that you wish to drive yourself with family to [facility]. Your work-up today included blood work and a CT scan of the abdomen which revealed ileus versus partial small bowel obstruction. Discharge Data Discharge Date/Time-TO BE ENTERED AT DEPARTURE: 01/09/20 17:45 Medical Decision Making 54-year-old female presents from home with days of constipation, abdominal bloating and distention. States 2 days ago she tried a laxative, felt nauseated and had some feculent emesis. She has not had a fever. She continues to make urine through her urostomy tube. She has a history of bladder cancer status post radiation therapy. Patient arrives with a pulse in proxy 100, afebrile, pleasant and interactive. Her abdomen is distended and somewhat tender left lower quadrant. Differential gnosis includes bowel obstruction, ileus, constipation. Patient IV access established, given parenteral fluids, referred for screening laboratories and CT imaging. Labs are reassuring. CT images note diffusely dilated loops of bowel throughout the abdomen. There are multiple loops of small bowel which demonstrate mucosal hyperenhancement and submucosal edema, also seen at the cecum and ascending colon. Given the possibility of underlying inflammatory changes, ileus, partial small bowel obstruction, the case was discussed with Dr. Bruner from general surgery. We recommended placement of an NG tube and admission to the hospital. Patient stated that she wished to be discharged and would present herself to [facility]. Demonstrates decision-making capacity and I feel that she is able to make this decision. She understands the risk benefits of discharge at this time. Lab Data Lab results reviewed: Yes I reviewed the patient's lab results. Labs: Laboratory Results - last 24 hr 01/09/20 01/09/20 14:25 14:25 WBC 6.33 RBC 3.84 L Hgb 12.0 Hct 36.8 MCV 95.8 H MCH 31.3 MCHC 32.6 RDW 14.8 H Plt Count 303 MPV 9.7 Immature Gran % 0.3 Neutrophils % 65.6 Lymphocytes % 15.0 Monocytes % 17.5 Eosinophils % 1.3 Basophils % 0.3 Absolute Neutrophils 4.15 Absolute Lymphocytes 0.95 L Absolute Monocytes 1.11 H Absolute Eosinophils 0.08 Absolute Basophils 0.02 Sodium 136 Potassium 3.3 L Chloride 101 Carbon Dioxide 27.1 Anion Gap 7.9 BUN 15 Creatinine 0.99 Estimated GFR/1.73 m2 58.24 Glucose 102 Calcium 8.5 Magnesium 1.6 L Total Bilirubin 0.2 AST 11 L ALT 9 L Alkaline Phosphatase 40 L Total Protein 6.3 L Albumin 2.6 L HPI General Mode of arrival: ambulatory. Date/Time Provider Initiated Documentation: 01/09/20 14:02. Limitations to Documentation: no limitations. Information obtained by: patient. History of Present Illness 54 year old F presents to the emergency department with the chief complaint of Lower abdominal pain, constipation, described as moderate and similar to prior episodes, Quality is described as dull, and is localized to the abdomen. Patient reports no radiation. Patient started experiencing this day(s) and it has been intermittent. No relieving factors improve symptom(s), No exacerbating factors reported . Patient notes other (Vomited 2 days ago x1); denies fever/chills. Related Data Home Medications Medication Instructions Recorded Confirmed ondansetron HCl 8 mg tablet 8 mg PO TID PRN #10 tab 03/01/18 01/09/20 atorvastatin [Lipitor] 10 mg PO HS 06/22/18 01/09/20 prochlorperazine maleate 10 mg PO ONCE 06/22/18 01/09/20 [Compazine] albuterol sulfate [ProAir HFA] 2 puff INHALATION .4-6 HRS PRN 01/09/20 01/09/20 budesonide-formoterol [Symbicort] 1 puff INHALATION BID 01/09/20 01/09/20 cholecalciferol (vitamin D3) 2,000 unit PO DAILY 01/09/20 01/09/20 [Vitamin D3] docusate sodium [DOK] 100 mg PO BID PRN 01/09/20 01/09/20 dronabinol 5 mg PO DAILY 01/09/20 01/09/20 fentanyl 25 TRANSDERMAL .Q72 HRS 01/09/20 gabapentin 100 mg PO .QHS 01/09/20 01/09/20 hydroxyzine HCl 25 mg PO TID 01/09/20 01/09/20 omeprazole 20 mg PO DAILY 01/09/20 01/09/20 oxycodone 10 mg PO .1-2 QID PRN 01/09/20 01/09/20 pramipexole 0.25 mg PO .QHS 01/09/20 01/09/20 venlafaxine 75 mg PO DAILY 01/09/20 01/09/20 Previous Rx's Medication Instructions Recorded ondansetron HCl 8 mg tablet 8 mg PO TID PRN #10 tab 03/01/18 Allergies Allergy/AdvReac Type Severity Reaction Status Date / Time nitrofurantoin Allergy really Unverified 01/09/20 14:02 sick General Stated Complaint: Abd Prob CHAD: 3 Review of Systems Narrative: No bowel movement for at least 1 week. No fever. Underwent radiation therapy for bladder cancer. 6 systems reviewed and otherwise negative [facility] Medical History (Updated 01/09/20 @ 17:50 by Anahy Bruner MD) Chronic pain after cancer treatment (Acute) Depression (Chronic) GERD (gastroesophageal reflux disease) (Chronic) Hx of bladder cancer (Inactive) Surgical History (Updated 01/09/20 @ 17:47 by Anahy Bruner MD) H/O total cystectomy (Inactive) History of urostomy (Acute) Social History Smoking/Tobacco Use Status: Current every day Tobacco Type: cigarettes Smoking packs per day: 0.5 Smoking cigarettes per day: 10.0 Alcohol Intake: never Drug use: Current Sobriety Do you feel safe in your relationship?: Yes Exam Narrative Exam Narrative: GEN: awake, alert, oriented 3. Pleasant, well groomed, interactive. HEAD: Normocephalic, atraumatic ENT: Mucous membranes moist, oropharynx unremarkable, External ear exam unremarkable EYES: PERRL, EOMI NECK: Full ROM, no CORTES, no menigismus CHEST/RESP: Right chest wall palpable indwelling port. Nontender, clear to auscultation bilateral, no wheeze/rhonchi/rales CARDIOVASCULAR: Borderline regular tachycardia to proxy 100 bpm, no murmur, rub susan. 2+ Rad pulse bilateral ABDOMEN: Soft, slightly distended, tender left lower quadrant, right anterior abdominal wall urostomy, no mass. +Bowel sounds EXT: Full ROM, no edema, no rash Neuro: Grossly normal neurologic exam, conversant, interactive. Psych: Speech fluent, thoughts congruent, affect normal Course Vital Signs Vital signs: Vital Signs Temperature 36.8 C 01/09/20 13:57 Pulse 117 H 01/09/20 13:57 Respiratory Rate 16 01/09/20 13:57 Blood Pressure 118/79 01/09/20 13:57 Pulse Oximetry 96 01/09/20 13:57 Temperature 36.8 C 01/09/20 13:57 Temperature Source Skin 01/09/20 13:57 Pulse 117 H 01/09/20 13:57 Respiratory Rate 16 01/09/20 13:57 Respiratory Effort Non-Labored 01/09/20 13:57 Blood Pressure 118/79 01/09/20 13:57 Blood Pressure Position Sitting 01/09/20 13:57 Pulse Oximetry 96 01/09/20 13:57 Oxygen Delivery Method Room Air 01/09/20 13:57 Oxygen Flow Rate 0 01/09/20 13:57 Pain Level 10 01/09/20 13:57
[2020-01-09 14:42] LABS: Abs Immature Grans 0.02 k/cumm (0.0-0.09); Absolute Basophil Count 0.02 k/cumm (0.0-0.2); Absolute Eosinophil Count 0.08 k/cumm (0.0-0.7); Absolute Lymphocyte Count 0.95 k/cumm (1.2-3.4); Absolute Monocyte Count 1.11 k/cumm (0.11-0.7); Absolute Neutrophil Count 4.15 k/cumm (1.2-6.7); Basophils % 0.3; Eosinophils % 1.3; HCT 36.8 % (36.0-46.0); Immature Grans % 0.3 %; Mean Corp. HGB Concentration 32.6 g/dL (32.0-36.0); Mean Corpuscular Hemoglobin 31.3 pg (27.0-33.0); Mean Corpuscular Volume 95.8 fL (80-95); Mean Platelet Volume 9.7 fL (8.0-11.0); Monocytes % 17.5; Neutrophils % 65.6; Platelet Count 303 x1000/uL (130-400); RBC 3.84 m/cumm (4.00-5.20); RBC Distribution Width 14.8 % (11.7-14.6); White Blood Cell Count 6.33 k/cumm (4.4-10.8)
[2020-01-09 14:57] LABS: ALT 9 U/L (14-59); AST 11 U/L (15-37); Albumin 2.6 g/dL (3.4-5.0); Alkaline Phosphatase 40 U/L (46-116); Anion Gap 7.9 mmol/L (3-11); BUN 15 mg/dL (7-18); Bilirubin, Total 0.2 mg/dL (0.2-1.0); CO2 27.1 mmol/L (21.0-32.0); CREATININE 0.99 mg/dL (0.55-1.02); Calcium 8.5 mg/dL (8.5-10.1); Chloride 101 mmol/L (98-107); Estimated GFR 58.24 (mL/min/1.73m2); Glucose 102 mg/dL (74-106); Magnesium 1.6 mg/dL (1.8-2.4); Potassium 3.3 mmol/L (3.5-5.1); Sodium 136 mmol/L (136-145); Total Protein 6.3 g/dL (6.4-8.2)
[2020-01-09] MEDS: Omnipaque 350 MG/ML 100 ML BTL IV (16:09)
[2020-01-09] MEDS: Normal Saline - Diluent 50 ML VIAL IV (16:22)
[2020-01-09] MEDS: oxyCODONE 10 MG TAB PO (17:02)
--- NOTE | 2020-01-09 17:22 | DI.VRAD_ITS ---
Addendum created by Angel Castillo MD on 01/09/2020 5:22:18 PM EDT THIS REPORT CONTAINS FINDINGS THAT MAY BE CRITICAL TO PATIENT CARE. The findings were verbally communicated via telephone conference with MICHAEL DOHERTY at 5:22 PM EDT on 01/09/2020. The findings were acknowledged and understood. Initial report created on 01/09/2020 5:22:03 PM EDT PROCEDURE INFORMATION: Exam: CT Abdomen And Pelvis With Contrast Exam date and time: 01/09/2020 2:19 PM Age: 54 years old Clinical indication: Other: Llq pain, obstipation, HX bladder CA; Prior surgery; Surgery date: 6+ months TECHNIQUE: Imaging protocol: Computed tomography of the abdomen and pelvis with intravenous contrast. Radiation optimization: All CT scans at this facility use at least one of these dose optimization techniques: automated exposure control; mA and/or kV adjustment per patient size (includes targeted exams where dose is matched to clinical indication); or iterative reconstruction. Contrast material: OMNIPAQUE 350; Contrast volume: 70 ml; Contrast route: INTRAVENOUS (IV); Other contrast: Oral, 0mnipaque 350, 50ml; COMPARISON: CT ABD/PELVIS WO W CONTRAST 05/06/2015 8:28 AM FINDINGS: Lungs: The visualized portions of the lung bases demonstrate no acute disease. Liver: No acute liver pathology is grossly noted. Gallbladder and bile ducts: Gallbladder appears unremarkable. Mild intra and extrahepatic biliary ductal dilation with the CBD measuring up to 9 mm. This is nonspecific. Pancreas: Normal. No ductal dilation. Spleen: The spleen demonstrates punctate calcifications, consistent with remote granulomatous organism exposure. Adrenals: Normal. No mass. Kidneys and ureters: There is moderate right hydronephrosis. There is moderate right hydroureter. No radiopaque obstructing stones are appreciated. Stomach and bowel: Diffusely dilated loops of bowel are seen throughout the abdomen. Small bowel measures up to 3.5 cm. Colon measures up to 4.7 cm. There is a area of transition appreciated in the right lower quadrant where there are multiple loops of small bowel which demonstrate mucosal hyperenhancement and submucosal edema. Similarly, the cecum/ascending colon also demonstrates mucosal hyperenhancement and submucosal edema. This favors inflammatory changes at this level. Appendix: No evidence of appendicitis. Intraperitoneal space: Low volume abdominopelvic ascites are present, most pronounced at the level of the pelvis. Vasculature: The vasculature demonstrates diffuse moderate atherosclerotic calcification. Lymph nodes: Unremarkable. No enlarged lymph nodes. Bladder: Patient is presumably status post cystectomy with right lower quadrant urinary diversion. Reproductive: Unremarkable as visualized. Bones/joints: No acute abnormality or aggressive osseous lesion. Limbus vertebra are identified at L3 and L5. Soft tissues: Unremarkable. IMPRESSION: 1. Mild intra and extrahepatic biliary ductal dilation of unclear etiology. 2. Findings favor a combination of ileus and a moderate grade partial small bowel obstruction, with the area of transition identified in the right lower quadrant where there appear to be several inflamed loops of small bowel, as well as cecum. Close follow-up is advised. No evidence of bowel perforation is appreciated at this time. 3. Status post cystectomy and right lower quadrant urinary diversion with moderate right obstructive uropathy, of unclear etiology. Dictated and Authenticated by: Angel Castillo MD. Ordering:ANA Rodriguez MD
--- NOTE | 2020-01-09 17:34 | SCONE_ITS ---
Date of service: 01/09/20 Time of Service: 17:34 Assessment and Plan Assessment and plan (1) Partial small bowel obstruction: Status: Acute Assessment and plan: A\\ 54 year old female s/p chemotherapy and radiation for Bladder Cancer. CT scan showed dilated small and large bowel. There is air throughout. There is a large amount of food in the stomach. There is stool within the colon. Patient is still passing flatus. ? Ileus vs PSBO Discussed with patient CT scan findings as well as treatment plan of admission, NG tube placement, NPO status. This would hopefully allow her bowel to decompress. Patient could be in hospital a few days. Patient prefers to go to [facility] [place] for treatment which is were all her Doctors are. This information was relayed to Dr. Isaac. History of Present Illness History of Present Illness Chief Complaint: Abdominal distention, N/V Narrative: 54-year-old female presented from home with days of constipation, abdominal bloating and distention. States 2 days ago she tried a laxative, felt nauseated and had some feculent emesis. She has not had a fever. She continues to make urine through her urostomy tube. She has a history of bladder cancer status post radiation therapy and chemotherapy. She finished both her chemo and radiation a few months ago. She has pain from her cancer and is on a fentanyl patch and po Oxycodon 10 mg Q6 hours prn. She tells me she usually will only take 2 tabs BID unless her pain is really bad. She is supposed to have a PET scan done soon to decide on further treatment. Patient is still passing flatus. Workup in the ER reveals slightly low potassium, and mild elevation of her liver enzymes, but otherwise unremarkable labs. CT scan was done and findings are below Patient Name: VÍCTOR BURROWS #: [id number]: ER Ordering Provider: : REG ER Primary Care Provider: Teetee Orozco M.D.Date of Exam: 01/09/20ex: F FINDINGS: Lungs: The visualized portions of the lung bases demonstrate no acute disease. Liver: No acute liver pathology is grossly noted. Gallbladder and bile ducts: Gallbladder appears unremarkable. Mild intra and extrahepatic biliary ductal dilation with the CBD measuring up to 9 mm. This is nonspecific. Pancreas: Normal. No ductal dilation. Spleen: The spleen demonstrates punctate calcifications, consistent with remote granulomatous organism exposure. Adrenals: Normal. No mass. Kidneys and ureters: There is moderate right hydronephrosis. There is moderate right hydroureter. No radiopaque obstructing stones are appreciated. Stomach and bowel: Diffusely dilated loops of bowel are seen throughout the abdomen. Small bowel measures up to 3.5 cm. Colon measures up to 4.7 cm. There is a area of transition appreciated in the right lower quadrant where there are multiple loops of small bowel which demonstrate mucosal hyperenhancement and submucosal edema. Similarly, the cecum/ascending colon also demonstrates mucosal hyperenhancement and submucosal edema. This favors inflammatory changes at this level. Appendix: No evidence of appendicitis. Intraperitoneal space: Low volume abdominopelvic ascites are present, most pronounced at the level of the pelvis. Vasculature: The vasculature demonstrates diffuse moderate atherosclerotic calcification. Lymph nodes: Unremarkable. No enlarged lymph nodes. Bladder: Patient is presumably status post cystectomy with right lower quadrant urinary diversion. Reproductive: Unremarkable as visualized. Bones/joints: No acute abnormality or aggressive osseous lesion. Limbus vertebra are identified at L3 and L5. Soft tissues: Unremarkable. IMPRESSION: 1. Mild intra and extrahepatic biliary ductal dilation of unclear etiology. 2. Findings favor a combination of ileus and a moderate grade partial small bowel obstruction, with the area of transition identified in the right lower quadrant where there appear to be several inflamed loops of small bowel, as well as cecum. Close follow-up is advised. No evidence of bowel perforation is appreciated at this time. 3. Status post cystectomy and right lower quadrant urinary diversion with moderate right obstructive uropathy, of unclear etiology. Review of Systems Constitutional Constitutional: Denies fever(s), Denies headache(s) and Reports poor appetite Eyes Eyes: Denies change in vision ENT Ears, Nose, Mouth, and Throat: Denies dysphagia and Denies headache(s) Cardiovascular Cardiovascular: Denies chest pain, Denies chest pain at rest, Denies rapid heart rate, Denies irregular heart rhythm, Denies palpitations and Denies dyspnea Respiratory Respiratory: Denies cough and Denies dyspnea Gastrointestinal Gastrointestinal: Reports as per HPI and Denies dysphagia Genitourinary Genitourinary: Reports as per HPI Musculoskeletal Musculoskeletal: Reports system reviewed and no additional complaints, except as documented Neurologic Neurologic: Reports system reviewed and no additional complaints, except as documented and Denies headache(s) Psychiatric Psychiatric: Reports system reviewed and no additional complaints, except as documented Endocrine Endocrine: Reports system reviewed and no additional complaints, except as documented and Denies palpitations PFSH Medical History (Updated 01/09/20 @ 17:50 by Anahy Bruner MD) Chronic pain after cancer treatment (Acute) Depression (Chronic) GERD (gastroesophageal reflux disease) (Chronic) Hx of bladder cancer (Inactive) Surgical History (Updated 01/09/20 @ 17:47 by Anahy Bruner MD) H/O total cystectomy (Inactive) History of urostomy (Acute) Social History Smoking/Tobacco Use Status: Current every day Tobacco Type: cigarettes Smoking packs per day: 0.5 Smoking cigarettes per day: 10.0 Alcohol Intake: never Drug use: Current Sobriety Do you feel safe in your relationship?: Yes Exam Const General: comfortable and no acute distress Nutritional Appearance: cachectic Orientation: alert and oriented x3 HENMT Head: normocephalic and atraumatic Eyes Pupils: PERRL Results Last Vital Signs Temp 98.2 F 01/09/20 13:57 Pulse 88 01/09/20 16:00 Resp 16 01/09/20 13:57 BP 119/80 01/09/20 16:00 Pulse Ox 97 01/09/20 16:01 Labs Result diagrams: 01/09/20 14:25 01/09/20 14:25 Labs: Laboratory Results - last 24 hr 01/09/20 01/09/20 14:25 14:25 WBC 6.33 RBC 3.84 L Hgb 12.0 Hct 36.8 MCV 95.8 H MCH 31.3 MCHC 32.6 RDW 14.8 H Plt Count 303 MPV 9.7 Immature Gran % 0.3 Neutrophils % 65.6 Lymphocytes % 15.0 Monocytes % 17.5 Eosinophils % 1.3 Basophils % 0.3 Absolute Neutrophils 4.15 Absolute Lymphocytes 0.95 L Absolute Monocytes 1.11 H Absolute Eosinophils 0.08 Absolute Basophils 0.02 Sodium 136 Potassium 3.3 L Chloride 101 Carbon Dioxide 27.1 Anion Gap 7.9 BUN 15 Creatinine 0.99 Estimated GFR/1.73 m2 58.24 Glucose 102 Calcium 8.5 Magnesium 1.6 L Total Bilirubin 0.2 AST 11 L ALT 9 L Alkaline Phosphatase 40 L Total Protein 6.3 L Albumin 2.6 L
== END 2020-01-09 17:45 | disposition left against medical advice (07) ==
PROVIDERS: Emergency Provider Emergency Medicine; PCP Family Medicine
DX: K56.699 Other intestinal obstruction unspecified as to partial versus complete obstruction (principal); R11.13 Vomiting of fecal matter; R10.32 Left lower quadrant pain; C67.9 Malignant neoplasm of bladder, unspecified; Z93.6 Other artificial openings of urinary tract status; Z90.6 Acquired absence of other parts of urinary tract; Z92.3 Personal history of irradiation; Z95.828 Presence of other vascular implants and grafts; Z53.29 Procedure and treatment not carried out because of patient's decision for other reasons
CPT/HCPCS: 36415; 80053; 99252; 99285; U0003; 74177; 83735; 85025; J3490

== ENCOUNTER 2020-01-26 13:09 | Outpatient (REF) | payer MEDICAID, SELFPAY ==
[2020-01-26 18:49] LABS: HCT 39.3 % (36.0-46.0); HGB 13.2 g/dL (11.2-15.7); MCH 30.8 pg (27.0-33.0); MCHC 33.6 % (32.0-36.0); MCV 91.6 fL (80-95); MPV 11.4 fL (8.0-11.0); Platelet Count 335 10^3/uL (130-400); RBC 4.29 10^6/uL (3.93-5.22); RDW 14.2 % (11.7-14.6); RDW-SD 47.8 fL; WBC 8.36 10^3/uL (4.4-10.8)
[2020-01-26 19:30] LABS: ALT 12 U/L (14-59); AST 12 U/L (15-37); Albumin 2.8 g/dL (3.4-5.0); Alkaline Phosphatase 49 U/L (46-116); Anion Gap 8.3 mmol/L (3-11); BUN 18 mg/dL (7-18); Bilirubin, Total 0.2 mg/dL (0.2-1.0); C-Reactive Protein 0.27 mg/dL (0.0-0.3); CO2 24.7 mmol/L (21.0-32.0); CREATININE 0.97 mg/dL (0.55-1.02); Chloride 100 mmol/L (98-107); Estimated GFR 59.62 (mL/min/1.73m2); Glucose 99 mg/dL (74-106); Potassium 3.9 mmol/L (3.5-5.1); Sodium 133 mmol/L (136-145); Total Protein 6.4 g/dL (6.4-8.2)
[2020-01-26 19:48] LABS: ESR 17 mm/hr (0-30)
== END 2020-01-26 13:29 ==
LOC: NCHCN 13:09
PROVIDERS: PCP Family Medicine; Visit Provider Family Medicine
DX: C67.9 Malignant neoplasm of bladder, unspecified (principal); R10.9 Unspecified abdominal pain
CPT/HCPCS: 80053; 85027; 85652; 86140

== ENCOUNTER 2020-02-27 12:46 | Outpatient (RCR) | payer MEDICAID, SELFPAY ==
[2020-02-27] MEDS: Heparin 500 UNITS/5 ML SYRINGE (13:00)
[2020-02-27] MEDS: Normal Saline Flush 10 ML SYR IVP (13:00)
[2020-02-27 13:02] LABS: Abs Immature Grans 0.01 10^3/uL (0.0-0.06); Absolute Basophil Count 0.06 10^3/uL (0.0-0.2); Absolute Eosinophil Count 0.08 10^3/uL (0.0-0.7); Absolute Lymphocyte Count 1.34 10^3/uL (1.2-3.4); Absolute Monocyte Count 0.76 10^3/uL (0.1-0.8); Absolute Neutrophil Count 3.76 10^3/uL (1.2-6.7); Eosinophils % 1.3; HCT 33.9 % (36.0-46.0); Immature Grans % 0.2; Lymphocytes % 22.3; MCH 30.6 pg (27.0-33.0); MCHC 32.4 % (32.0-36.0); MCV 94.4 fL (80-95); MPV 9.9 fL (8.0-11.0); Monocytes % 12.6; Neutrophils % 62.6; Nucleated RBC 0 %; Platelet Count 233 10^3/uL (130-400); RBC 3.59 10^6/uL (3.93-5.22); RDW 15.1 % (11.7-14.6); RDW-SD 52.2 fL; WBC 6.01 10^3/uL (4.4-10.8)
[2020-02-27 13:28] LABS: ALT 15 U/L (14-59); AST 13 U/L (15-37); Albumin 2.8 g/dL (3.4-5.0); Alkaline Phosphatase 37 U/L (46-116); Anion Gap 6.4 mmol/L (3-11); BUN 19 mg/dL (7-18); Bilirubin, Total 0.2 mg/dL (0.2-1.0); CO2 24.6 mmol/L (21.0-32.0); CREATININE 1.01 mg/dL (0.55-1.02); Calcium 8.6 mg/dL (8.5-10.1); Chloride 103 mmol/L (98-107); Estimated GFR 56.91 (mL/min/1.73m2); Glucose 82 mg/dL (74-106); Potassium 4.5 mmol/L (3.5-5.1); Sodium 134 mmol/L (136-145); Total Protein 6.3 g/dL (6.4-8.2)
[2020-02-27 17:15] LABS: FREE T4 0.91 ng/dL (0.76-1.46); TSH 0.98 uIU/mL (0.36-3.74)
== END 2020-03-20 23:59 | disposition home or self-care (01) ==
LOC: INF 12:46
PROVIDERS: PCP Family Medicine; Visit Provider Internal Medicine
DX: C79.19 Secondary malignant neoplasm of other urinary organs (principal); Z45.2 Encounter for adjustment and management of vascular access device; Z79.899 Other long term (current) drug therapy
CPT/HCPCS: 36591; 80053; 84439; 84443; 85025

== ENCOUNTER 2020-04-02 01:09 | Outpatient (RCR) | payer MEDICAID, SELFPAY ==
[2020-03-26 09:40] LABS: Abs Immature Grans 0.07 10^3/uL (0.0-0.06); Absolute Basophil Count 0.04 10^3/uL (0.0-0.2); Absolute Monocyte Count 1.82 10^3/uL (0.1-0.8); Basophils % 0.3; Eosinophils % 0.2; HCT 43.9 % (36.0-46.0); HGB 15.1 g/dL (11.2-15.7); Immature Grans % 0.5; MCH 31.1 pg (27.0-33.0); MCHC 34.4 % (32.0-36.0); MCV 90.3 fL (80-95); MPV 10.7 fL (8.0-11.0); Monocytes % 13.9; Neutrophils % 71.1; Nucleated RBC 0 %; Platelet Count 357 10^3/uL (130-400); RBC 4.86 10^6/uL (3.93-5.22); RDW 13.4 % (11.7-14.6); RDW-SD 44.6 fL; WBC 13.11 10^3/uL (4.4-10.8)
[2020-03-26 10:01] LABS: Absolute Eosinophil Count 0.03 10^3/uL (0.0-0.7); Absolute Lymphocyte Count 1.84 10^3/uL (1.2-3.4); Absolute Neutrophil Count 9.32 10^3/uL (1.2-6.7)
[2020-03-26 10:07] LABS: Diff Comment Diff Reviewed; RBC Morphology Normal
[2020-03-26 10:08] LABS: ALT 10 U/L (14-59); AST 14 U/L (15-37); Albumin 3.6 g/dL (3.4-5.0); Alkaline Phosphatase 62 U/L (46-116); Anion Gap 7.8 mmol/L (3-11); BUN 73 mg/dL (7-18); Bilirubin, Total 0.6 mg/dL (0.2-1.0); CO2 36.2 mmol/L (21.0-32.0); CREATININE 2.27 mg/dL (0.55-1.02); Calcium 9.8 mg/dL (8.5-10.1); Chloride 82 mmol/L (98-107); Estimated GFR 22.35 (mL/min/1.73m2); Glucose 137 mg/dL (74-106); Potassium 3.5 mmol/L (3.5-5.1); Sodium 126 mmol/L (136-145); Total Protein 7.8 g/dL (6.4-8.2)
[2020-03-26] MEDS: Normal Saline Flush 10 ML SYR IVP (11:06)
== END 2020-04-20 23:59 | disposition home or self-care (01) ==
LOC: INF 01:09
PROVIDERS: PCP Family Medicine; Visit Provider Internal Medicine
DX: C79.19 Secondary malignant neoplasm of other urinary organs (principal); Z45.2 Encounter for adjustment and management of vascular access device
CPT/HCPCS: 36591; 80053; 85025

== ENCOUNTER 2020-05-07 00:55 | Outpatient (RCR) | payer MEDICAID, SELFPAY ==
[2020-05-07 09:10] LABS: Abs Immature Grans 0.04 10^3/uL (0.0-0.06); Absolute Basophil Count 0.02 10^3/uL (0.0-0.2); Absolute Eosinophil Count 0.03 10^3/uL (0.0-0.7); Absolute Lymphocyte Count 1.32 10^3/uL (1.2-3.4); Absolute Monocyte Count 0.77 10^3/uL (0.1-0.8); Absolute Neutrophil Count 4.95 10^3/uL (1.2-6.7); Basophils % 0.3; Eosinophils % 0.4; HGB 10.5 g/dL (11.2-15.7); Immature Grans % 0.6; Lymphocytes % 18.5; MCH 31.4 pg (27.0-33.0); MCHC 33.9 % (32.0-36.0); MCV 92.8 fL (80-95); MPV 10.8 fL (8.0-11.0); Monocytes % 10.8; Neutrophils % 69.4; Nucleated RBC 0 %; Platelet Count 244 10^3/uL (130-400); RBC 3.34 10^6/uL (3.93-5.22); RDW 15.1 % (11.7-14.6); RDW-SD 51.3 fL; WBC 7.13 10^3/uL (4.4-10.8)
[2020-05-07] MEDS: Normal Saline Flush 10 ML SYR IVP (09:35)
[2020-05-07 09:37] LABS: ALT 11 U/L (14-59); AST 15 U/L (15-37); Albumin 2.5 g/dL (3.4-5.0); Alkaline Phosphatase 53 U/L (46-116); Anion Gap 9.4 mmol/L (3-11); BUN 27 mg/dL (7-18); Bilirubin, Total 0.3 mg/dL (0.2-1.0); CO2 23.6 mmol/L (21.0-32.0); CREATININE 1.12 mg/dL (0.55-1.02); Calcium 8.5 mg/dL (8.5-10.1); Chloride 104 mmol/L (98-107); Estimated GFR 50.51 (mL/min/1.73m2); Glucose 97 mg/dL (74-106); Potassium 3.4 mmol/L (3.5-5.1); Sodium 137 mmol/L (136-145); TSH 1.18 uIU/mL (0.36-3.74); Total Protein 5.9 g/dL (6.4-8.2)
== END 2020-05-20 23:59 | disposition home or self-care (01) ==
LOC: INF 00:55
PROVIDERS: PCP Family Medicine; Visit Provider Internal Medicine
DX: C79.10 Secondary malignant neoplasm of unspecified urinary organs (principal); Z45.2 Encounter for adjustment and management of vascular access device
CPT/HCPCS: 36591; 80053; 84439; 84443; 85025

== ENCOUNTER 2020-07-09 02:33 | Outpatient (RCR) | payer MEDICAID, SELFPAY | END 2020-07-12 23:59 | disposition home or self-care (01) | LOC: INF 02:33 | PROVIDERS: PCP Family Medicine; Visit Provider Internal Medicine | DX: Z53.9 Procedure and treatment not carried out, unspecified reason (principal) ==